=== PATIENT | female | born 1960 | race Caucasian/White ===

== ENCOUNTER 2019-03-09 12:42 | Inpatient (IN) ==
[2019-03-09] MEDS ORDERED: SOLU-MEDROL IV ONE (13:28)
[2019-03-09] MEDS ORDERED: DUONEB (A & A) INH ONE (13:28)
[2019-03-09 13:55] LABS: BASO# 0.02 X1000 (0.0-0.2); BASO% 0.4 % (0.0-0.8); EOS# 0.07 X1000 (0.0-0.7); EOS% 1.5 % (0.0-10.0); HEMATOCRIT 39.5 % (37.0-47.0); HEMOGLOBIN 13.6 g/dL (12.0-16.0); LYMPH% 21.5 % (20.5-51.1); MCH 30.5 PG (27-31); MCHC 34.4 g/dL (33-37); MCV 88.6 FL (81-99); MONO# 0.46 X1000 (0.11-0.59); MONO% 9.9 % (1.7-9.3); MPV 9.2 FL (7.4-10.4); NEUT% 66.7 % (42.2-75.2); PLT 274 X1000 (130-400); RBC 4.46 XMIL (4.2-5.4); RDW 14.4 % (11.5-14.5); WBC 4.65 X1000 (4.8-10.8)
[2019-03-09 14:41] LABS: AGAP 11; ALB/GLOB RATIO 1.5; ALBUMIN 3.8 g/dL (3.5-5.0); ALKALINE PHOSPHATASE 137 U/L (32-104); BUN 9 mg/dL (8-22); CALCIUM 8.8 mg/dL (8.8-10.2); CHLORIDE 92 mmol/L (98-107); COSMO 256; CREATININE 0.6 mg/dL (0.5-0.9); ESTIMATED GFR > 60; GLUCOSE 104 mg/dL (70-104); GOT 15 U/L (10-30); GPT 11 U/L (10-36); POTASSIUM 4.1 mmol/L (3.5-5.1); SODIUM 128 mmol/L (136-145); TCO2 25 mmol/L (25-35); TOTAL BILIRUBIN 0.27 mg/dL (0.20-1.00); TOTAL PROTEIN 6.3 g/dL (6.3-8.3)
--- NOTE | 2019-03-09 14:43 | Diag Imaging Result Doc PS360 ---
EXAM: CHEST-2 VIEWS INDICATION: cough, SOB TECHNIQUE: 2 views COMPARISON: 02/21/2019 FINDINGS: Inspiration is suboptimal. There is mild subsegmental atelectasis at the right lung base. The lungs are grossly clear, otherwise. There is no discrete pleural fluid collection or pneumothorax. The cardiomediastinal silhouette and central vasculature are grossly unremarkable. There is osteopenia and stable multilevel compression deformities involving the thoracic spine. IMPRESSION: Right basilar atelectasis. No definite acute pathology, otherwise. Electronically signed by Salvador Coronado 03/09/2019 2:41 PM
[2019-03-09] MEDS ORDERED: ROCEPHIN 1 GM in NS 50 ML IV ONE (15:49)
[2019-03-09 16:33] LABS: BLOOD TYPE ARTERIAL; SAMPLE BLOOD
[2019-03-09 16:34] LABS: BE 0.4 mmoll (-3.0-3.0); O2(CT) 16.9 mL/dL (15.0-23.0); PCO2(98.6) 31 mmHg (35-45); PO2(98.6) 64 mmHg (60-100); SAO2 95.4 % (95.0-100.0); THB 13.4 g/dL (11.5-17.4); pH(98.6) 7.48 (7.35-7.45)
[2019-03-09 16:37] LABS: ALLEN TEST YES; MODALITY ROOM AIR; O2HB 89.9 % (95.0-99.0)
[2019-03-09 17:14] LABS: URINE SOURCE CLEAN CATCH
[2019-03-09 17:32] LABS: BILIRUBIN URINE NEGATIVE (NEGATIVE); BLOOD URINE TRACE (NEGATIVE); COLOR YELLOW; GLUCOSE URINE NEGATIVE (NEGATIVE); KETONE URINE NEGATIVE (NEGATIVE); LEUKOCYTES URINE NEGATIVE (NEGATIVE); NITRITE URINE NEGATIVE (NEGATIVE); PH URINE 7.5; PROTEIN URINE NEGATIVE (NEGATIVE); SP GRAVITY URINE 1.009; TURBIDITY URINE CLEAR (CLEAR); UROBILINOGEN URINE NORMAL (NORMAL)
[2019-03-09 17:33] LABS: UR EPITHELIAL CELLS <10 /HPF (<10); URINE BACTERIA NEGATIVE /HPF; URINE RBC <10 /HPF (<10); URINE WBC <10 /HPF (<10)
[2019-03-09] MEDS ORDERED: ZOFRAN IV PRN (18:19)
[2019-03-09] MEDS ORDERED: DUONEB (A & A) INH PRN (18:23)
--- NOTE | 2019-03-09 18:24 | PROVIDER DOCUMENTATION ---
This chart was entered by Omaira Cruz Scribe, acting as scribe for Binh Fowler CRNP. HPI-Respiratory General - General Chief Complaint: Cough Stated Complaint: SOB,COUGHING,HAD PNEUMONIA Time Seen by Provider: 03/09/19 12:57 Source: patient, family (Sister) Allergies/Adverse Reactions: Patient Allergies Allergy/AdvReac Type Severity Reaction Status Date / Time No Known Allergies Allergy Verified 09/06/18 12:36 Home Medications: Home Medication List Medication Instructions Recorded Confirmed Last Taken Type Biotin [Nail-Ex] 5,000 mcg PO DAILY 10/06/13 04/26/17 04/26/17 05:00 History Calcium Carbonate/Vitamin D3 1 each PO DAILY 10/06/13 04/26/17 04/26/17 05:00 History [Calcium + Vitamin D Tablet] Docusate Sodium [Stool Softener] 300 mg PO HS 10/06/13 04/26/17 04/25/17 History ENALApril [Vasotec] 5 mg PO DAILY 10/06/13 04/26/17 04/26/17 05:00 History Furosemide [Lasix] 40 mg PO BID 10/06/13 04/26/17 04/26/17 05:00 History Gabapentin [Neurontin] 800 mg PO TID 10/06/13 04/26/17 04/26/17 05:00 History Metformin [Glucophage] 500 mg PO DAILY 10/06/13 04/26/17 04/26/17 05:00 History Omeprazole [Prilosec] 20 mg PO DAILY 10/06/13 04/26/17 04/26/17 05:00 History Simvastatin 20 mg PO DAILY 10/06/13 04/26/17 04/26/17 00:50 History Tizanidine [Zanaflex] 4 mg PO BID 10/06/13 04/26/17 04/26/17 00:50 History Venlafaxine E.r. [Effexor Xr] 300 mg PO DAILY 10/06/13 04/26/17 04/26/17 05:00 History Oxcarbazepine [Trileptal] 300 mg PO BID 05/09/14 04/26/17 04/26/17 05:00 History Hydrocodone/APAP 7.5 mg/325 mg 1 each PO BID #14 tablet 04/26/17 Unknown Rx [[place]-7.5] Oxycodone HCl/Acetaminophen 1 ea PO Q4-6H PRN PRN #20 tab 11/16/17 Unknown Rx [Percocet 7.5-325 mg Tablet] Hydrocodone/APAP 5 mg/325 mg 1 ea PO Q6H PRN PRN #10 tab 07/23/18 Unknown Rx [[place]-5] Hydrocodone/APAP 7.5 mg/325 mg 1 ea PO Q6H PRN PRN #15 tab 09/06/18 Unknown Rx [[place]-7.5] CefDINIR [Omnicef] 300 mg PO BID #14 cap 02/21/19 Unknown Rx - History of Present Illness-Resp Nature of Presenting Problem: Patient is a 58 y/o female presents to the ED with complaint of SOB, productive cough with clear sputum, generalized chest and back pain worsening with cough, and worsening edema which has been going on for several weeks and worsening last night. She also states she has been sleeping in a recliner due to worsening of SOB when lying flat. The patient states she was seen here a few weeks ago and given antibiotic treatment for diagnosis of bronchitis. She then saw her PCP, Dr. Camp, and received Levaquin which she finished and told to have pneumonia. She denies fever, n/v/d, or any other symptoms and is non-toxic in appearance. Quality of Pain: reports: tightness Onset/Duration: reports: other (cseveral weeks worsening last night) Timing: reports: getting worse Exposure: reports: unknown cause Cough Quality/Degree: reports: productive cough Current Respiratory Medication Therapy: Initiated see nurses note Modifying Factors: worse with: coughing, lying down Associated Symptoms: reports: cough, short of breath Similar Symptoms Previously?: Yes Recently seen or treated by another doctor?: Yes Review of Systems - Adult - REVIEW OF SYSTEMS - ADULT Constitutional: reports: no symptoms reported Eyes: reports: no symptoms reported Ears, Nose, Mouth & Throat: reports: no symptoms reported Cardiovascular: reports: chest pain, edema (worsening), orthopnea Respiratory: reports: cough, shortness of breath. denies: hemoptysis Gastrointestinal: denies: abdominal pain, diarrhea, nausea, vomiting Genitourinary: reports: no symptoms reported Musculoskeletal: reports: no symptoms reported Integumentary: reports: no symptoms reported Neurological: reports: no symptoms reported Psychiatric: reports: no symptoms reported Endocrine: reports: no symptoms reported Hematologic/Lymphatic: reports: no symptoms reported Allergic/Immunologic: reports: no symptoms reported All Other Systems: Reviewed and Negative Past History - Adult - PAST MEDICAL HISTORY-ADULT Review of Records: reports: Old Records Reviewed, Nursing Assessment Review, Medications Reviewed Major Childhood Illnesses: reports: denies history Cardiovascular: reports: HTN, hyperlipidemia Respiratory: reports: COPD, sleep apnea Gastrointestinal: reports: GERD Obstetrical/Gynecological: reports: denies history Genitourinary: reports: denies history Musculoskeletal: reports: chronic pain, neck/back injury Neurological: Psychiatric: reports: bipolar, depression Endocrine/Immune: reports: Diabetes Other Conditions: reports: other cancer - PRIOR SURGERIES/PROCEDURES Surgical/Procedure History: reports: appendectomy, cholecystectomy, orthopedic (extremity) (bilateral arms), back/neck, gastric bypass - IMMUNIZATION STATUS Childhood Immunizations: See Nurse Assessment Flu Vaccine: See Nurse Assessment - FAMILY HISTORY Family History: reviewed, not pertinent - SOCIAL HISTORY Smoking: denies Substance Use: none/never Physical Exam-General - PHYSICAL EXAM-ADULT Initial Vital Signs Reviewed: Yes - CONSTITUTIONAL General Appearance: alert, mild distress, obese. negative: appears well, lethargic, slow to respond - EYES Eyes: PERRL/EOMI - HEAD, EARS, NOSE, MOUTH & THROAT HENMT: normocephalic/atraumatic, moist mucous membranes - NECK Neck: full range of motion, supple, normal inspection - RESPIRATORY Respiratory: chest non-tender, no accessory muscle use, respiratory distress (Mild), rhonchi (diffuse expiratory), wheezing (diffuse inspiratory), pain on inspiration (Pt reports chest/rib/back pain with inspiration.). negative: decreased breath sounds - CARDIOVASCULAR Cardiovascular: normal peripheral pulses, regular rate, rhythm, no gallop, no JVD, no murmur, other (2+ pitting edema bilateral lower extremities) - GASTROINTESTINAL (ABDOMEN) Abdominal Exam: non tender, soft, no organomegaly, no pulsatile mass. negative: distended, guarding, rigid, rebound, tenderness, hernia, mass - MUSCULOSKELETAL Back Exam: normal inspection Extremity: normal range of motion, non-tender, normal capillary refill, pedal edema (2+ pitting bilateral lower extremities). negative: slow capillary refill - SKIN Integumentary: normal color, warm/dry. negative: cyanosis, diaphoresis, jaundice, mottled, pallor - NEUROLOGIC Neurologic: grossly normal, no motor/sensory deficits - PSYCHIATRIC Psych/Mental Status: normal mood/affect, normal thought content, normal thought process, oriented x 3 - HEART Score HEART Score: History: Slightly Suspicious HEART Score: ECG: Normal HEART Score: Age: 45-65 Years HEART Score: Risk Factors for Atherosclerotic Disease: > or = 3 Risk Factors or History of Atherosclerotic Disease HEART Score: Troponin: < or = Normal Limit Total HEART Score:: 3 Progress - PLAN OF CARE/RESULTS Progress/Plan/Lab Results: Vital Signs - 8 hr 03/09/19 12:46 03/09/19 13:27 03/09/19 13:30 Temperature 97.9 F Pulse Rate 85 75 77 Respiratory Rate 18 14 17 Blood Pressure 121/76 O2 Sat by Pulse Oximetry 99 99 100 03/09/19 13:47 03/09/19 14:09 03/09/19 14:30 Temperature Pulse Rate 74 73 75 Respiratory Rate 17 16 16 Blood Pressure 129/84 O2 Sat by Pulse Oximetry 97 97 03/09/19 15:00 03/09/19 15:23 03/09/19 15:24 Temperature Pulse Rate 72 77 78 Respiratory Rate 13 23 22 Blood Pressure 138/83 O2 Sat by Pulse Oximetry 97 99 03/09/19 15:30 03/09/19 15:31 03/09/19 16:00 Temperature Pulse Rate 75 72 81 Respiratory Rate 20 20 20 Blood Pressure 119/75 O2 Sat by Pulse Oximetry 100 100 92 L 03/09/19 16:01 03/09/19 16:30 03/09/19 16:31 Temperature Pulse Rate 79 80 78 Respiratory Rate 19 21 16 Blood Pressure 118/82 140/99 O2 Sat by Pulse Oximetry 95 92 L 94 L Laboratory Results - last 24 hr 03/09/19 03/09/19 03/09/19 13:40 13:40 13:40 WBC 4.65 L RBC 4.46 Hgb 13.6 Hct 39.5 MCV 88.6 MCH 30.5 MCHC 34.4 RDW Std Deviation 14.4 Plt Count 274 MPV 9.2 Neut % (Auto) 66.7 Lymph % (Auto) 21.5 [place] % (Auto) 9.9 H Eos % (Auto) 1.5 Baso % (Auto) 0.4 Neut # (Auto) 3.10 Lymph # (Auto) 1.00 L [place] # (Auto) 0.46 Eos # (Auto) 0.07 Baso # (Auto) 0.02 Specimen Type Sample Site pH pCO2 pO2 HCO3 Base Excess Oxyhemoglobin ABG O2 Sat (Calculated) ABG O2 Saturation ABG Carboxyhemoglobin ABG Methemoglobin Cash Test A-a O2 Difference Total Hemoglobin Lactate Blood Gas Modality FiO2 % Sodium 128 L Potassium 4.1 Chloride 92 L Carbon Dioxide 25 Anion Gap 11 BUN 9 Creatinine 0.6 Estimated GFR/1.73 m2 > 60 BUN/Creatinine Ratio 15 Glucose 104 Calculated Osmolality 256 Calcium 8.8 Total Bilirubin 0.27 AST 15 ALT 11 Alkaline Phosphatase 137 H Troponin T < 0.010 Efu-A-Sepbpluosqc Pept Total Protein 6.3 Albumin 3.8 Globulin 2.5 Albumin/Globulin Ratio 1.5 Urine Source Urine Color Urine Turbidity Urine pH Ur Specific [place] Urine Protein Ur Glucose (Stick) Ur Ketones (Stick) Urine Blood Urine Nitrite Urine Bilirubin Urobilinogen Dipstick Urine Leukocytes Urine WBC (Auto) Urine RBC (Auto) U Epithel Cells (Auto) Urine Bacteria (Auto) 03/09/19 03/09/19 03/09/19 13:40 16:30 17:06 WBC RBC Hgb Hct MCV MCH MCHC RDW Std Deviation Plt Count MPV Neut % (Auto) Lymph % (Auto) [place] % (Auto) Eos % (Auto) Baso % (Auto) Neut # (Auto) Lymph # (Auto) [place] # (Auto) Eos # (Auto) Baso # (Auto) Specimen Type ARTERIAL Sample Site R RADIAL pH 7.48 H pCO2 31 L pO2 64 HCO3 25.0 Base Excess 0.4 Oxyhemoglobin 89.9 L* ABG O2 Sat (Calculated) 16.9 ABG O2 Saturation 95.4 ABG Carboxyhemoglobin 4.70 H ABG Methemoglobin 1.0 Cash Test YES A-a O2 Difference 47.0 Total Hemoglobin 13.4 Lactate 0.60 Blood Gas Modality ROOM AIR FiO2 % 21.0 Sodium Potassium Chloride Carbon Dioxide Anion Gap BUN Creatinine Estimated GFR/1.73 m2 BUN/Creatinine Ratio Glucose Calculated Osmolality Calcium Total Bilirubin AST ALT Alkaline Phosphatase Troponin T Leb-N-Yihwvprxslh Pept 14 Total Protein Albumin Globulin Albumin/Globulin Ratio Urine Source CLEAN CATCH Urine Color YELLOW Urine Turbidity CLEAR Urine pH 7.5 Ur Specific [place] 1.009 Urine Protein NEGATIVE Ur Glucose (Stick) NEGATIVE Ur Ketones (Stick) NEGATIVE Urine Blood TRACE A Urine Nitrite NEGATIVE Urine Bilirubin NEGATIVE Urobilinogen Dipstick NORMAL Urine Leukocytes NEGATIVE Urine WBC (Auto) <10 Urine RBC (Auto) <10 U Epithel Cells (Auto) <10 Urine Bacteria (Auto) NEGATIVE Orders Category Date Time Status Cardiac Monitoring DIRECTED Care 03/09/19 13:28 Active Saline Loc NOW Care 03/09/19 13:28 Active CHEST-2 VIEWS [RAD] Stat Exams 03/09/19 13:28 Completed ABG [RESP] Routine Lab 03/09/19 16:30 Completed CBC WITH DIFF [HEME] Stat Lab 03/09/19 13:40 Completed COMPREHENSIVE METABOLIC PANEL [CHEM] Stat Lab 03/09/19 13:40 Completed PRO B-NATRIURETIC PEPTIDE Stat Lab 03/09/19 13:40 Completed TROPONIN T Stat Lab 03/09/19 13:40 Completed URINALYSIS W/POSS RFLX CULT [URINALYSIS] Stat Lab 03/09/19 17:06 Completed Albuterol 2.5MG/Ipratrop 0.5MG [Duoneb (A & A)] Med 03/09/19 13:28 Discontinued 3 ml INH NOW ONE CefTRIAXONE [Rocephin] 1 gm Med 03/09/19 15:49 Discontinued 0.9% Sodium Chloride Inj [Ns] 50 ml IV NOW Methylprednisolone Sod Succ [Solu-Medrol] Med 03/09/19 13:28 Discontinued 125 mg IV NOW ONE Aerosol Treatments Routine Oth 03/09/19 13:28 Completed Aerosol Treatments Stat Oth 03/09/19 13:28 Completed EKG [EKG] Stat Ther 03/09/19 13:28 Ordered 1604- Spoke with [facility] FINANCIAL SPECIALIST Summer regarding admission, FINANCIAL SPECIALIST requests ABGs prior to disposition decision. Pt is in agreement with admission plan. Reports moderate improvement in SOB with breathing tx. O2 sat drops to 88-90% when pt sits up in bed. Rhonchi and wheezing improved as compared to prior exam. 1657- The patient is attempting to remove IV herself and wishes to sign out AMA. Pt is a&ox4 at this time. Sister is in the room and states pt is neurologically intact and not altered. Pt states, "I just don't like staying in the hospital." Explained that risks of leaving include worsening hypoxia and . Also explained that pt has become hypoxic with minimal activity in the ED. She verbalized understanding of risks and still refuses admission. Instructed to return if needed and to follow up with her pcp tomorrow at the very least. Summ er, FINANCIAL SPECIALIST aware that pt is signing out AMA. Result Diagrams: 03/09/19 13:40 03/09/19 13:40 - EKG 1 Time of EKG reading by physician:: 13:44 EKG Read and Signed by:: Stan Wren EKG Interpretation (*Must complete 3 of following elements*): Normal Rate: 77 Rhythm: NSR IA Interval: normal ST Wave: normal - XRAY 1 XRAY Study: Chest (EXAM: CHEST-2 VIEWS INDICATION: cough, SOB TECHNIQUE: 2 views COMPARISON: 02/21/2019 FINDINGS: Inspiration is suboptimal. There is mild subsegmental atelectasis at the right lung base. The lungs are grossly clear, otherwise. There is no discrete pleural fluid collection or pneumothorax. The cardiomediastinal silhouette and central vasculature are grossly unremar kable. There is osteopenia and stable multilevel compression deformities involving the thoracic spine. IMPRESSION: Right basilar atelectasis. No definite acute pathology, otherwise. Electronically signed by Salvador Coronado 03/09/2019 2:41 PM) - CONSULTS/PCP/HOSPITALIST Notification #1 *Consult/PCP/Hospitalist*: Summer, Hospitalist Time Discussed: 16:52 Reason/Comments: Oxy hemoglobin 89 Consult Disposition: Will see in ED Departure - Departure Date of Disposition Decision: 03/09/19 Time of Disposition Decision: 16:52 DIAGNOSIS: Shortness of breath, Cough Chest pain Qualifiers: Chest pain type: unspecified Qualified Code(s): R07.9 - Chest pain, unspecified Disposition: AGAINST MEDICAL ADVICE 07 Certified Medical Emergency: Emergent Condition: Stable Referrals and Follow-Ups: Nicola Smyth MD [Primary Care Provider] - - Critical Care Note This patient required my direct & personal management of CC.: No Attestation - Physician/ GINI Attestation Patient care was provided by Advanced Practice Provider:: Yes Advanced Practice Provider:: Binh Fowler Advanced Practice Provider documentation review:: The Mid-level provider documentation, treatment plan and medical decision making was reviewed by the physician who agrees with all treatment and medical decision making by the MLP. The physician spent face to face time with patient:: No Advanced Practice Provider documentation review:: Supervising physician onsite and consulted in the evaluation and care of this patient. The physician did not have a face to face encounter with the patient. This chart was documented by the indicated scribe, (Omaira Cruz, Gabriel) and accurately reflects the services I performed and decisions made by Janeth allison DeLana C., CRNP, as attested by the provider's signature.
[2019-03-09] MEDS ORDERED: LOVENOX SUBQ SCH (18:30)
[2019-03-09] MEDS ORDERED: DOXYCYCLINE 100 MG in NS 250 ML IV ONE (19:00)
--- NOTE | 2019-03-09 19:25 | HISTORY AND PHYSICAL ---
PRIMARY CARE PHYSICIAN: Nicola Smyth MD. PRESENTING COMPLAINT: Short of breath, cough. HISTORY OF PRESENTING COMPLAINT: Ms. Leo is a 58-year-old, female with a history of diabetes, hypertension, chronic tobacco abuse. The patient refers to have come to the emergency department on 02/21/2019 because of shortness of breath and cough, was treated for bronchitis, sent home on steroids and cefdinir, completed treatment for 7 days. However, she continues to feel worse, so she called to her primary care doctor, Dr. Smyth, who also gave her a prescription for antibiotics and another course of steroids and she did that for another 7 days. At the end of therapy, she did not feel any better. She continues to be extremely short of breath and cough with yellow expectoration, so she decided to come to the emergency department today where she has been evaluated and we have been consulted for admission because of failed outpatient therapy. PAST MEDICAL HISTORY: 1. Diabetes mellitus. 2. Hypertension. 3. Chronic pain syndrome. PAST SURGICAL HISTORY: 1. Left shoulder surgery. 2. Cervical spine surgery. 3. Cholecystectomy. 4. Colonoscopy done in 2015. FAMILY HISTORY: Positive for diabetes. SOCIAL HISTORY: Patient lives together with the sister. Smokes about 30 pack year history. Denies alcohol use and no recreational drug use. ALLERGIES: None known. REVIEW OF SYSTEMS: Fourteen-point review of systems conducted with Ms. Leo, unremarkable except what we have in the HPI. Specifically, she denies any chest pain, any syncopal episode. No fever, no chills. No weight loss. No abdominal pain and no headaches. PHYSICAL EXAMINATION: VITAL SIGNS: Blood pressure is currently 140/99, pulse of 78, respiration is 16, temperature is 97.6. GENERAL EXAM: Ms. Leo is a 58-year-old, female. She is in bed. She is not in any cardiopulmonary distress. HEENT: Mucosa is slightly dry, but pink. Anicteric, acyanotic. NECK: Supple. CHEST: Air entry is bilaterally reduced. There is diffuse end-expiratory wheezing in both lung gonzales. There is also prolonged expiratory phase of respiration. CARDIOVASCULAR: Regular rate and rhythm. No murmurs, no rubs, no gallops. [place] beat is at the 5th intercostal space, midclavicular line. ABDOMEN: Soft, nontender. There is some old laparoscopic scars on the anterior abdominal wall. EXTREMITIES: Chronic erythematous changes on the lower extremity on both, more on the right than the left due to chronic stasis dermatitis. PATIENT SERVICES COORDINATOR: Patient is awake, alert, oriented x4. Executive function seems to be intact. Motor is 5/5 in all extremities. Sensation is intact. Reflexes are normal in all joints. Cranial nerves 2-12 have been grossly examined and they are unremarkable. PSYCH: The patient is very cooperative to physical exams and interrogations. She has very good understanding and insight. The the sister was also at the bedside at the time of the encounter. IMAGING STUDIES: A chest x-ray shows a right basilar atelectasis. No definite acute pathology. LABORATORY DATA: WBC is 4.65, hemoglobin is 13.6, platelet count of 274. CBC is also seen. PH is 7.48, pCO2 is 21. Mild oxyhemoglobin of 89.9, carboxyhemoglobin was 4.7. Sodium is 138, potassium 4.1, chloride 92, rest of chemistry is unremarkable. Urinalysis is normal. ASSESSMENT AND PLAN: Ms. Leo is 58 years old, chronic tobacco abuse, who has been treated on 2 different occasions for lower respiratory tract related symptoms and the patient has not improved. She has been admitted for failed outpatient management. 1. Acute bronchospasm in a patient with history of more than 30 pack year history. Chest x-ray is unremarkable. I suspect Ms. Leo has chronic obstructive pulmonary disease exacerbation. We are going to start her on IV antibiotics, steroids, and bronchodilation therapy. We will also do a CTA of the lungs to rule out any possible PE. 2. Tobacco abuse. Cessation has been addressed. 3. Mild clinical volume depletion with hyponatremia. We will gently hydrate the patient and re- evaluate her hydration status in the morning and repeat also chemistry. 4. Morbid obesity with BMI of 34.9. Weight loss is advised. 5. Hypertension, controlled. 6. Diabetes mellitus. We will use insulin regimen at this point. The patient normally uses oral hypoglycemic agents which we will withhold for now. 7. Chronic pain syndrome. We will continue to address her pain needs. So today, we are going to admit Ms. Leo to the medical floor. We will gently hydrate her. Continue with the standard care for COPD exacerbation. Hopefully, she improves. If not we will consult Pulmonary Medicine. I have explained my plan to Ms. Leo and her sister who was also at the bedside at the time of the encounter and they both voiced understanding and agreement. cc: Gilmer Perla MD
[2019-03-09] MEDS: SOLU-MEDROL IV SCH (19:42)
[2019-03-09] MEDS: MAXIPIME 1 GM in NS 50 ML IV SCH (19:42)
[2019-03-09] MEDS ORDERED: NORCO-5 PO ONE (19:50)
[2019-03-09] MEDS: DUONEB (A & A) INH SCH ×2 (20:07→23:09)
--- NOTE | 2019-03-09 20:11 | Diag Imaging Result Doc PS360 ---
EXAM: CT ANGIOGRM PULMONARY ARTERIES INDICATION: SOB TECHNIQUE: This exam was performed using automated exposure control, adjustment of mA or kV according to patient size, and/or use of iterative reconstruction technique. Thin section axial images and 3-D MIPS were obtained. COMPARISON: None. FINDINGS: There is no evidence of pulmonary embolism. There is no evidence of aortic dissection or aneurysm. There is no cardiomegaly. There are coronary artery atherosclerotic calcifications. There is no significant mediastinal or hilar lymphadenopathy. There is mild subsegmental atelectasis at the lung bases. The lungs are essentially clear, otherwise. There is no pleural fluid collection and no pneumothorax. There are surgical edis associated with the stomach. Limited views of the upper abdomen are essentially unremarkable, otherwise. IMPRESSION: Mild subsegmental atelectasis at the lung bases. No evidence of pulmonary embolism or acute pathology, otherwise. Electronically signed by Salvador Coronado 03/09/2019 8:09 PM
[2019-03-09] MEDS ORDERED: NORCO-7.5 PO SCH (21:00)
[2019-03-09] MEDS ORDERED: COLACE PO SCH (21:00)
[2019-03-10] MEDS: NS 1,000 ML IV SCH ×2 (01:27→03:21)
[2019-03-10] MEDS: TRILEPTAL PO SCH ×3 (01:27→10:23)
[2019-03-10] MEDS: ZANAFLEX PO SCH ×3 (01:28→10:23)
[2019-03-10] MEDS: SOLU-MEDROL IV SCH ×2 (03:07→12:01)
[2019-03-10] MEDS: NORCO-7.5 PO PRN ×2 (03:21→10:21)
[2019-03-10] MEDS: ZOCOR PO SCH ×2 (07:41→10:23)
[2019-03-10] MEDS: NEURONTIN PO SCH ×2 (07:41→10:24)
[2019-03-10] MEDS: MAXIPIME 1 GM in NS 50 ML IV SCH (07:41)
[2019-03-10] MEDS: EFFEXOR XR PO SCH ×2 (07:41→10:23)
[2019-03-10] MEDS: PRILOSEC PO SCH ×2 (07:42→10:24)
[2019-03-10 07:52] LABS: HEMATOCRIT 40.3 % (37.0-47.0); LYMPH# 0.38 X1000 (1.2-3.4); LYMPH% 7.6 % (20.5-51.1); MCH 30.3 PG (27-31); MCHC 34.7 g/dL (33-37); MCV 87.2 FL (81-99); MONO# 0.27 X1000 (0.11-0.59); MONO% 5.4 % (1.7-9.3); MPV 9.6 FL (7.4-10.4); NEUT# 4.37 X1000 (1.4-6.5); PLT 280 X1000 (130-400); RBC 4.62 XMIL (4.2-5.4); RDW 14.2 % (11.5-14.5); WBC 5.02 X1000 (4.8-10.8)
[2019-03-10 08:00] LABS: AGAP 11; ALB/GLOB RATIO 1.3; ALBUMIN 3.6 g/dL (3.5-5.0); ALKALINE PHOSPHATASE 122 U/L (32-104); BUN 6 mg/dL (8-22); CALCIUM 8.9 mg/dL (8.8-10.2); CHLORIDE 102 mmol/L (98-107); COSMO 270; CREATININE 0.5 mg/dL (0.5-0.9); ESTIMATED GFR > 60; GLUCOSE 133 mg/dL (70-104); GOT 13 U/L (10-30); GPT 11 U/L (10-36); SODIUM 135 mmol/L (136-145); TCO2 22 mmol/L (25-35); TOTAL BILIRUBIN 0.25 mg/dL (0.20-1.00); TOTAL PROTEIN 6.3 g/dL (6.3-8.3)
[2019-03-10 08:07] LABS: BANDS 2 % (0-1); LYMPHS 6 % (21-51); MONO 4 % (1-9); SEGS 88 % (42-75)
[2019-03-10] MEDS: DUONEB (A & A) INH SCH ×2 (08:07→10:53)
[2019-03-10] MEDS ORDERED: NORCO-7.5 PO SCH (09:00)
[2019-03-10] MEDS ORDERED: DOXYCYCLINE 100 MG in NS 250 ML IV SCH (09:00)
[2019-03-10 13:29] VITALS: BP 134/68
--- NOTE | 2019-03-11 08:35 | EKG Report ---
Test Performed on : 03/09/2019 1:44:41 PM Test Reason : PNA Blood Pressure : / mmHG Vent. Rate : 077 BPM Atrial Rate : 077 BPM P-R Int : 156 ms QRS Dur : 104 ms QT Int : 416 ms P-R-T Axes : 052 037 055 degrees QTc Int : 470 ms Normal sinus rhythm. Normal ECG When compared with ECG of 20-FEB-2019 23:56, (Unconfirmed) No significant change was found Unconfirmed Result
== END 2019-03-10 13:45 | disposition left against medical advice (07) | DRG 191 ==
LOC: ED 12:42 → SUATTDRO 03-10 00:23 → 3N 03-10 00:23
PROVIDERS: ATTEND Internal Medicine
CPT/HCPCS: 71020; 71046; 71275; 80053; 81001; 82805; 83880; 84443; 84484; 85025; 93005; 94640; 94761; A9270; J0692; J0696; J1650; J2920; J2930; J7030; J7050; Q9967

== ENCOUNTER 2019-03-26 20:07 | Inpatient (IN) ==
[2019-03-26 22:43] LABS: BASO# 0.01 X1000 (0.0-0.2); BASO% 0.2 % (0.0-0.8); EOS# 0.09 X1000 (0.0-0.7); EOS% 1.5 % (0.0-10.0); HEMATOCRIT 36.4 % (37.0-47.0); HEMOGLOBIN 12.5 g/dL (12.0-16.0); IMM GRAN# 0.02 X1000 (0.0-0.04); IMM GRAN% 0.3 % (0.0-0.5); LYMPH# 1.09 X1000 (1.2-3.4); LYMPH% 17.9 % (20.5-51.1); MCH 30.8 PG (27-31); MCHC 34.3 g/dL (33-37); MCV 89.7 FL (81-99); MONO# 0.59 X1000 (0.11-0.59); MONO% 9.7 % (1.7-9.3); MPV 9.7 FL (7.4-10.4); NEUT# 4.29 X1000 (1.4-6.5); NEUT% 70.4 % (42.2-75.2); PLT 249 X1000 (130-400); RBC 4.06 XMIL (4.2-5.4); WBC 6.09 X1000 (4.8-10.8)
[2019-03-26 23:02] LABS: AGAP 9; ALBUMIN 3.6 g/dL (3.5-5.0); BUN 9 mg/dL (8-22); CALCIUM 8.6 mg/dL (8.8-10.2); CHLORIDE 95 mmol/L (98-107); COSMO 260; CREATININE 0.5 mg/dL (0.5-0.9); ESTIMATED GFR > 60; GLUCOSE 102 mg/dL (70-104); POTASSIUM 3.9 mmol/L (3.5-5.1); SODIUM 130 mmol/L (136-145); TCO2 26 mmol/L (25-35); TOTAL PROTEIN 6.4 g/dL (6.3-8.3)
[2019-03-26 23:03] LABS: ALKALINE PHOSPHATASE 116 U/L (32-104); GOT 14 U/L (10-30); GPT 12 U/L (10-36)
--- NOTE | 2019-03-26 23:47 | PROVIDER DOCUMENTATION ---
This chart was entered by Kim Rodriguez Scribe, acting as scribe for Donnie Sorenson MD. HPI-General Adult - General Chief Complaint: Generalized Pain Stated Complaint: BACK/ABD PAIN Time Seen by Provider: 03/26/19 21:37 Source: patient Allergies/Adverse Reactions: Patient Allergies Allergy/AdvReac Type Severity Reaction Status Date / Time No Known Allergies Allergy Verified 09/06/18 12:36 Home Medications: Home Medication List Medication Instructions Recorded Confirmed Last Taken Type Docusate Sodium [Stool Softener] 300 mg PO HS 10/06/13 03/26/19 04/25/17 History ENALApril [Vasotec] 5 mg PO DAILY 10/06/13 03/26/19 04/26/17 05:00 History Furosemide [Lasix] 40 mg PO BID 10/06/13 03/26/19 04/26/17 05:00 History Gabapentin [Neurontin] 800 mg PO TID 10/06/13 03/26/19 04/26/17 05:00 History Metformin [Glucophage] 500 mg PO DAILY 10/06/13 03/26/19 04/26/17 05:00 History Simvastatin 20 mg PO DAILY 10/06/13 03/26/19 04/26/17 00:50 History Tizanidine [Zanaflex] 4 mg PO BID 10/06/13 03/26/19 04/26/17 00:50 History Venlafaxine E.r. [Effexor Xr] 300 mg PO DAILY 10/06/13 03/26/19 04/26/17 05:00 History Oxcarbazepine [Trileptal] 300 mg PO BID 05/09/14 03/26/19 04/26/17 05:00 History Aspirin [Luis A Chewable Aspirin] 1 tab PO DAILY 03/09/19 03/26/19 Unknown History Calcium Carbonate [Calcium] 600 mg PO DAILY 03/09/19 03/26/19 Unknown History Omeprazole 40 mg PO DAILY 03/09/19 03/26/19 Unknown History Oxybutynin Chloride [Oxybutynin 15 mg PO DAILY 03/09/19 03/26/19 Unknown History Chloride ER] Sertraline HCl [Zoloft] 200 mg PO DAILY 03/09/19 03/26/19 Unknown History Trazodone [Desyrel] 100 mg PO HS 03/09/19 03/26/19 Unknown History Acetaminophen [Tylenol] 1 gm PO Q4-6H PRN PRN 03/26/19 03/26/19 Unknown History Hydrocodone/APAP 5 mg/325 mg 1 tab PO Q6H PRN PRN #12 tab 03/27/19 Unknown Rx [Bronx-5] - History of Present Illness -Gen Adult Nature of Presenting Problems: pt is a 58 yr old female presenting with 3 week hx of increasing back pain, abdominal pain, pt treated for pneumonia 03/09/19. denies chest pain or shortness of breath, admits hx of osteoarthritis, no relief with neurotin Location of Pain/Injury: reports: back Pain Radiation: reports: epigastric, RUQ Quality of Pain: reports: aching Severity: reports: severe Onset/Duration: reports: other (3weeks) Timing: reports: still present, getting worse Context/Activities at Onset: reports: light activity Modifying Factors: improves with: other medication (neurotin-no relief) Associated Symptoms: reports: back/neck pain. denies: chest pain, cough, fever/chills, genitourinary problems, sinus congestion/drainage, shortness of breath Similar Symptoms Previously?: Yes Recently seen or treated by another doctor?: Yes Review of Systems - Adult - REVIEW OF SYSTEMS - ADULT Constitutional: denies: chills, fever Eyes: reports: no symptoms reported Ears, Nose, Mouth & Throat: reports: no symptoms reported Cardiovascular: reports: edema (bilateral lower leg edema-chronic). denies: chest pain, palpitations, syncope Respiratory: denies: cough, shortness of breath, wheezing Gastrointestinal: reports: abdominal pain. denies: diarrhea, nausea, vomiting Genitourinary: denies: dysuria, frequency, flank pain Musculoskeletal: reports: back pain. denies: joint pain, neck pain Integumentary: reports: other (erythema distal bilateral lower legs-chronic) Neurological: denies: dizziness/vertigo, headache/migraines Psychiatric: reports: no symptoms reported Endocrine: reports: no symptoms reported Hematologic/Lymphatic: reports: no symptoms reported Allergic/Immunologic: reports: no symptoms reported All Other Systems: Reviewed and Negative Past History - Adult - PAST MEDICAL HISTORY-ADULT Review of Records: reports: Old Records Reviewed, Nursing Assessment Review, Medications Reviewed, Social history reviewed & non-contributory. Major Childhood Illnesses: reports: denies history Cardiovascular: reports: HTN, hyperlipidemia Respiratory: reports: COPD, sleep apnea Gastrointestinal: reports: GERD Obstetrical/Gynecological: reports: denies history Genitourinary: reports: denies history Musculoskeletal: reports: chronic pain, neck/back injury Neurological: Psychiatric: reports: bipolar, depression Endocrine/Immune: reports: Diabetes Other Conditions: reports: other cancer - PRIOR SURGERIES/PROCEDURES Surgical/Procedure History: reports: appendectomy, cholecystectomy, orthopedic (extremity) (bilateral arms), back/neck, gastric bypass - IMMUNIZATION STATUS Childhood Immunizations: See Nurse Assessment Flu Vaccine: See Nurse Assessment - FAMILY HISTORY Family History: reviewed, not pertinent - SOCIAL HISTORY Smoking: cigarettes, greater than 1 pack/day Provider spent 3-5 mins advising pt. on dangers of tobacco.: Discussed manners to quit use, and f/u contacts for add'l counseling. Living Situation: family Physical Exam-General - PHYSICAL EXAM-ADULT Initial Vital Signs Reviewed: Yes - CONSTITUTIONAL General Appearance: alert, no apparent distress, obese - EYES Eyes: PERRL/EOMI - HEAD, EARS, NOSE, MOUTH & THROAT HENMT: normocephalic/atraumatic, moist mucous membranes, normal ENT inspection - NECK Neck: non-tender, full range of motion, supple, normal inspection - RESPIRATORY Respiratory: chest non-tender, lungs clear, normal breath sounds, no respiratory distress, no accessory muscle use - CARDIOVASCULAR Cardiovascular: normal peripheral pulses, regular rate, rhythm - GASTROINTESTINAL (ABDOMEN) Abdominal Exam: normal bowel sounds, non tender, soft - LYMPHATIC Lymphatic: no adenopathy - MUSCULOSKELETAL Back Exam: no CVA tenderness, vertebral tenderness (thoracic tenderness) Extremity: normal range of motion, normal inspection, pedal edema (bilateral pedal edema), swelling (bilateral lowers legs), tenderness (bilateral lower legs) - SKIN Integumentary: erythema ( erythema bilateral distal lower legs) - NEUROLOGIC Neurologic: grossly normal - PSYCHIATRIC Psych/Mental Status: normal mood/affect Progress - PLAN OF CARE/RESULTS Progress/Plan/Lab Results: Vital Signs - 8 hr 03/26/19 20:18 Temperature 98.2 F Pulse Rate 83 Respiratory Rate 20 Blood Pressure 121/82 O2 Sat by Pulse Oximetry 99 Orders Category Date Time Status cxr [CHEST-2 VIEWS] [RAD] Stat Exams 03/26/19 20:51 Taken CBC WITH ELECTRONIC DIFF [HEME] Stat Lab 03/26/19 20:51 Uncollected COMPREHENSIVE METABOLIC PANEL [CHEM] Stat Lab 03/26/19 20:51 Uncollected Result Diagrams: 03/26/19 20:20 03/26/19 20:20 Departure - Departure Date of Disposition Decision: 03/27/19 Time of Disposition Decision: 01:20 DIAGNOSIS: Compression fracture of T8 vertebra Qualifiers: Encounter type: initial encounter Qualified Code(s): S22.060A - Wedge compression fracture of T7-T8 vertebra, initial encounter for closed fracture Compression fracture of T9 vertebra Qualifiers: Encounter type: initial encounter Qualified Code(s): S22.070A - Wedge compression fracture of T9-T10 vertebra, initial encounter for closed fracture Compression fracture of T10 vertebra Qualifiers: Encounter type: initial encounter Qualified Code(s): S22.070A - Wedge compression fracture of T9-T10 vertebra, initial encounter for closed fracture Compression fracture of T7 vertebra Qualifiers: Encounter type: initial encounter Qualified Code(s): S22.060A - Wedge compression fracture of T7-T8 vertebra, initial encounter for closed fracture Disposition: HOME 01 Certified Medical Emergency: Emergent Condition: Stable Additional Freetext Instructions: Followup with [facility] in [place] ([phone]) We have examined and treated you today on an emergency basis only. This was not a substitute for, or an effort to provide, complete medical care. In most cases, you must let your doctor check you again. Tell your doctor about any new or lasting problems. We cannot recognize and treat all injuries or illnesses in one Emergency Department visit. If you had special tests, such as X-rays or CT scans, will be reviewed by radiologist and will call you if there are any new jones ggestions Follow up with primary care provider in 1 to 2 days if no improvement. If you do not have a primary care provider, you need to choose one as soon as possible. Take medicines as prescribed. Monitor for any side effects or adverse events from medications. If any side effect, adverse event or rash develops, or if you suspect any other adverse reaction to the medication, then discontinue the medication immediately and contact clinic /PCP or go to the nearest ER. Narcotic meds / sedative meds instruction - patent advised not to drive, operate any machinery or go into water after taking meds as it may impair mental ability to react to the situation in an appropriate manner. Continue other current medicines. Follow up with PCP within 24-48 hours, or sooner if symptoms worsen or fail to improve. Patient / guardian verbalizes understanding of treatment plan, medication, and side effects and agrees with treatment plan. Patient leaves ER in stable condition and ambulatory state. Return to ER as needed. Discharge instructions reviewed verbally and given to patient in written form. Follow up with spine center without fail, no bending or lifting. No bending or lifting ED Follow Up Instructions: You have been treated by a care provider in the Emergency Department. These instructions are being provided to you so you can have an understanding of how to care for yourself upon discharge. Upon discharge from the Emergency Department, you are responsible for making arrangements for follow-up care by a physician of your choice. Take all prescribed medications as directed. Return to the Emergency Department immediately for any new or worsening symptoms. You may call the Physician Referral phone number at [phone] to obtain a list of Physicians who are taking new patients. Prescriptions: Hydrocodone/APAP 5 mg/325 mg [Bronx-5] 1 tab PO Q6H PRN PRN #12 tab PRN Reason: Pain Referrals and Follow-Ups: Nicola Smyth MD [Primary Care Provider] - Work Excuses: Return to School/Parent Work Discharge Education: Spinal Compression Fracture - Critical Care Note This patient required my direct & personal management of CC.: No Attestation - Physician/ GINI Attestation Patient care was provided by Advanced Practice Provider:: No The physician spent face to face time with patient:: Yes Advanced Practice Provider documentation review:: Supervising physician onsite and consulted in the evaluation and care of this patient. The physician did have a face to face encounter with the patient. This chart was documented by the indicated scribe, (Kim Rodriguez Scribe) and accurately reflects the services I performed and decisions made by me, Donnie Sorenson MD, as attested by the provider's signature.
[2019-03-27] MEDS ORDERED: MORPHINE IM ONE (00:24)
[2019-03-27] MEDS ORDERED: ZOFRAN IM ONE (00:24)
[2019-03-27] MEDS ORDERED: ZOFRAN IV PRN (02:52)
[2019-03-27] MEDS ORDERED: NS 1,000 ML IV ONE (02:52)
--- NOTE | 2019-03-27 04:59 | Diag Imaging Result Doc PS360 ---
EXAM : CT THORACIC SPINE W/O CONTRAST HISTORY: BACK PAIN TECHNIQUE: Emergency CT of the thoracic spine without contrast COMPARISON: Chest x-ray from 03/09/2019 FINDINGS: There are 50% compression fractures to the T7, T8, and T9 vertebra. Approximately 30% compression fracture to the T10 vertebra. These were present on the prior plain film. No new compression fracture. No subluxation. Exaggerated kyphosis. No pleural effusions. No pneumothoraces. IMPRESSION: Old compression fractures unchanged from the prior chest x-ray. A preliminary report was given at 11:44 PM on 03/26/2019 This exam was performed using automated exposure control, adjustment of mA or kV according to patient size, and/or use of iterative reconstruction technique. Electronically signed by Sherman Casiano 03/27/2019 4:57 AM
--- NOTE | 2019-03-27 05:12 | Diag Imaging Result Doc PS360 ---
EXAM: CT ABD/PELVIS W/IV CONT ONLY HISTORY: abdominal pain TECHNIQUE: CT abdomen and pelvis with intravenous contrast COMPARISON: None. FINDINGS: There is a small hiatal hernia. There has been a gastric bypass procedure and the gallbladder has been removed. Mild fatty infiltration of the liver. Normal spleen, pancreas, adrenal glands, and kidneys. No hydronephrosis. Prominent atherosclerosis. No aortic aneurysm. Prominent stool throughout the colon. The cecum is in the anterior mid abdomen measuring 7.0 cm in maximum diameter. There are scattered distal colonic diverticula. The uterus is small. Neither ovary is enlarged. The urinary bladder is distended and appears normal. No abscess. No ascites. The lumbar spine would be discussed under separate report. IMPRESSION: 1.Gastric bypass and cholecystectomy 2.Small hiatal hernia 3.Mild fatty infiltration of the liver 4.Constipation with a distended cecum 5.Prominent atherosclerosis 6.A preliminary report was given at 1:36 AM This exam was performed using automated exposure control, adjustment of mA or kV according to patient size, and/or use of iterative reconstruction technique. Electronically signed by Sherman Casiano 03/27/2019 5:09 AM
--- NOTE | 2019-03-27 05:13 | Diag Imaging Result Doc PS360 ---
EXAM: CHEST-2 VIEWS HISTORY: BACK PAIN RECENT PNA TECHNIQUE: Chest two views COMPARISON: 03/09/2019 FINDINGS: The lungs are well expanded. The heart is not enlarged. The vessels are not distended. There are mild increased interstitial markings in the left base. No consolidation. No pleural effusions. There has been surgery to the right clavicle. The left hemidiaphragm is elevated. IMPRESSION: Left basilar atelectasis. Electronically signed by Sherman Casiano 03/27/2019 5:11 AM
--- NOTE | 2019-03-27 05:23 | Diag Imaging Result Doc PS360 ---
EXAM : CT LUMBAR SPINE W/O CONTRAST HISTORY: BACK PAIN TECHNIQUE: Emergency CT of the lumbar spine without contrast. COMPARISON: None. No plain films obtained. FINDINGS: Lumbar spine: There is good alignment to the lumbar spine. No compressed vertebra. No other fracture. No subluxation. Mild degenerative changes in the lower lumbar spine. No significant neural foraminal narrowing. No disc herniation. IMPRESSION: No acute fracture. A preliminary report was given at 11:39 PM on 03/26/2019 This exam was performed using automated exposure control, adjustment of mA or kV according to patient size, and/or use of iterative reconstruction technique. Electronically signed by Sherman Casiano 03/27/2019 5:21 AM
[2019-03-27] MEDS ORDERED: FLEET MINERAL OIL ENEMA PR ONE (07:41)
--- NOTE | 2019-03-27 08:06 | Diag Imaging Result Doc PS360 ---
EXAM: KUB ABDOMEN HISTORY: abdominal pain TECHNIQUE: Abdomen two views COMPARISON: None. FINDINGS: There is a large amount of stool throughout the colon. Multiple surgical clips are in the upper abdomen and in the pelvis. No organomegaly. Prominent atherosclerosis. IMPRESSION: Marked constipation. Electronically signed by Sherman Casiano 03/27/2019 8:04 AM
--- NOTE | 2019-03-27 08:21 | GENERAL SURGERY CONSULTATION ---
DATE: 03/27/2019 REASON FOR CONSULTATION: Abdominal pain and distended cecum. HISTORY OF PRESENT ILLNESS: This is a 58-year-old female who presented to the emergency room yesterday for persistent severe low back pain across her lower back that has been present for 3 weeks and unrelenting, and she could not take the pain anymore. She has tried Tylenol, ibuprofen and Neurontin for this pain but has not had any relief. She was admitted at [facility] for about 1 night but signed herself out because she was frustrated with, I guess, the lack of communication and perhaps no one being able to help her with her pain. She also admits to some mild upper abdominal pain for the last 2 days that hurts when she coughs, but is not too bad if she is lying still. She also reports chronic constipation. She takes stool softeners regularly. She says she goes 3 or 4 times per week, but cannot recall when her last bowel movement was and it was probably at least 2 days ago. She did vomit yesterday, but is not nauseated today. No fever or chills, or other systemic complaints. PAST MEDICAL HISTORY: Low back pain, constipation, hypertension, diabetes mellitus. PAST SURGICAL HISTORY: Right shoulder surgery, C-spine surgery, laparoscopic Karena-en-Y gastric bypass, laparoscopic cholecystectomy. ALLERGIES: No known drug allergies. HOME MEDICATIONS: Simvastatin, Zanaflex, Neurontin, Colace, metformin, Lasix, Effexor, Vasotec, Trileptal, calcium carbonate, omeprazole, Zoloft, Desyrel, aspirin, oxybutynin, Tylenol. SOCIAL HISTORY: She smokes 1 pack per day. She denies alcohol or illicit drug use. FAMILY HISTORY: Positive for diabetes. Otherwise unremarkable. REVIEW OF SYSTEMS: Ten systems reviewed and negative except as noted above. PHYSICAL EXAMINATION: Vital Signs: Temperature 97.7 degrees, pulse 73, respirations 16, blood pressure 110/61, O2 saturation 100%. General: She is elderly and appears chronically ill but in no acute distress. HEENT: Normocephalic, atraumatic. Extraocular muscles intact. Pupils equal, round, reactive to light. Sclerae anicteric. Moist mucous membranes. Neck: Supple. No thyromegaly. Cardiovascular: Regular rate and rhythm. Respiratory: Bilateral breath sounds. No work of breathing. Gastrointestinal: Soft, obese, minimally tender in the upper abdomen. No rebound or guarding. No organomegaly or mass. No hernias appreciated. Extremities: No clubbing, cyanosis, or edema. Skin: Warm and dry. No rash. Musculoskeletal: Moves all extremities equally and well. LABORATORY DATA: CBC and complete metabolic profile reviewed and notable for sodium of 130, chloride 95, alkaline phosphatase 116, lipase 8. IMAGING: CT of abdomen and pelvis was done and over the phone last night, was described to me by the preliminary radiology report as a possible cecal volvulus. It was read this morning here as having constipation with a distended cecum. On my own review, I actually think the colon in the anterior abdomen is a redundant loop of sigmoid colon. In any case, her colon appears to be quite constipated. There does not appear to be any volvulus or other intra-abdominal acute pathology. She does have chronic calcified vessels. ASSESSMENT AND PLAN: A 58-year-old female with low back pain and constipation. I do not think she has an acute surgical abdomen. We will order a clear liquid diet and observe her for now. I will also order MiraLAX and an enema. cc: Cem Reyna MD
[2019-03-27 08:29] LABS: BASO# 0.01 X1000 (0.0-0.2); BASO% 0.2 % (0.0-0.8); EOS# 0.08 X1000 (0.0-0.7); EOS% 1.6 % (0.0-10.0); HEMATOCRIT 37.4 % (37.0-47.0); HEMOGLOBIN 12.6 g/dL (12.0-16.0); IMM GRAN# 0.02 X1000 (0.0-0.04); IMM GRAN% 0.4 % (0.0-0.5); LYMPH# 0.46 X1000 (1.2-3.4); MCH 30.3 PG (27-31); MCHC 33.7 g/dL (33-37); MCV 89.9 FL (81-99); MONO# 0.63 X1000 (0.11-0.59); MONO% 12.3 % (1.7-9.3); MPV 9.2 FL (7.4-10.4); NEUT# 3.91 X1000 (1.4-6.5); NEUT% 76.5 % (42.2-75.2); PLT 237 X1000 (130-400); RBC 4.16 XMIL (4.2-5.4); RDW 15.1 % (11.5-14.5); WBC 5.11 X1000 (4.8-10.8)
[2019-03-27] MEDS ORDERED: TYLENOL PO PRN (08:45)
[2019-03-27] MEDS ORDERED: GLUCOPHAGE PO SCH (09:00)
[2019-03-27] MEDS: MORPHINE IV PRN ×3 (09:07→22:02)
[2019-03-27] MEDS: MIRALAX PO SCH ×2 (09:18→21:47)
[2019-03-27] MEDS: COLACE PO SCH ×2 (09:18→21:47)
[2019-03-27] MEDS: CALTRATE 600 PO SCH (10:20)
[2019-03-27] MEDS: TRILEPTAL PO SCH ×2 (10:21→21:47)
[2019-03-27] MEDS: SOLU-MEDROL IV SCH ×2 (10:21→17:16)
[2019-03-27] MEDS: LASIX PO SCH ×2 (10:22→21:47)
[2019-03-27] MEDS: DITROPAN XL PO SCH (10:22)
[2019-03-27] MEDS: VASOTEC PO SCH (10:22)
[2019-03-27] MEDS: ZOLOFT PO SCH (10:22)
[2019-03-27] MEDS: ASPIRIN PO SCH (10:22)
[2019-03-27] MEDS: ZANAFLEX PO SCH ×2 (10:23→21:47)
[2019-03-27] MEDS: EFFEXOR XR PO SCH (13:26)
[2019-03-27] MEDS: NEURONTIN PO SCH ×2 (14:15→21:47)
--- NOTE | 2019-03-27 17:46 | HISTORY AND PHYSICAL ---
CHIEF COMPLAINT: Abdominal pain. HISTORY OF PRESENT ILLNESS: This is a 58-year-old female who presented to the emergency room complaining of bilateral lower back pain that she states has been persistent for 3 weeks despite taking Tylenol, ibuprofen, and Neurontin. She was admitted [facility]. She does state that she has had upper abdominal pain for the last 2 days that is present when she coughs. She does report chronic constipation with normal bowel movements about 3 times a week. She thinks it has been 2 or 3 days since her last bowel movement. She denies any nausea, any black or bloody vomitus or stools. She did state that she had 1 episode of vomiting yesterday. PAST MEDICAL HISTORY: Low back pain, hypertension, diabetes mellitus. PAST SURGICAL HISTORY: C-spine, Karena-en-Y gastric bypass, laparoscopic cholecystectomy, and right shoulder surgery. ALLERGIES: No known drug allergies. HOME MEDICATIONS: A list will be obtained by the nursing staff and once verified we will review and restart as appropriate. REVIEW OF SYSTEMS: Review of systems is discussed with patient with pertinent positives stated in HPI. She denied any syncope or dizziness, any chest pain, palpitations, cough, fever, chills, any night sweats, black or bloody vomitus or stools, any hematuria, dysuria, frequency, urgency. PHYSICAL EXAMINATION: GENERAL: This is a 58-year-old female who is sitting up in the bed in no distress. VITAL SIGNS: Blood pressure is 118/662 with a heart rate of 80, respirations 16, temperature 98.7 degrees with O2 saturations of 96%. EYES: Pupils equal, round, react to light. EOMs are intact. Sclerae are anicteric. HEENT: Head is normocephalic, atraumatic. Mucous membranes are moist. NECK: Supple. Trachea midline. CARDIOVASCULAR: Regular rate and rhythm. S1 and S2 appreciated. EXTREMITIES: She has no lower extremity edema. Calves are nontender to palpation bilaterally with peripheral pulses palpable x4 extremities. PULMONARY: Breath sounds are clear with no increased work of breathing noted. Chest rises and falls symmetric with respiration. Chest wall is nontender to palpation gastrointestinal. ABDOMEN: Soft. Nondistended. It is large. She has upper abdominal tenderness. Bowel sounds in all 4 quadrants. SKIN: Warm and dry. NEUROLOGIC: She is alert and oriented. DIAGNOSTIC STUDIES: WBC is 6 with hemoglobin 12.5, hematocrit 36.4, platelets of 249,000. Sodium 130, potassium 3.9, BUN 9, creatinine 0.5 with a glucose of 102. Lipase is 8. 1. Chest x-ray revealed left basilar atelectasis. 2. L-spine CT revealed no acute fracture. 3. Thoracic C-spine revealed 50% compression fractures to the T7, T8, and T9 vertebra. Approximately 30% compression fracture to the T10 vertebra. No subluxation. Exaggerated kyphosis. No pleural effusions. No pneumothoraces. 4. CT of the abdomen and pelvis revealed gastric bypass and cholecystectomy. Small hiatal hernia. Mild fatty infiltration of the liver. Constipation with a distended cecum. Prominent atherosclerosis per Radiology read. ASSESSMENT AND PLAN: 1. Constipation. 2. Chronic low back pain. 3. T7, T8, T9, and T10 compression fractures . 4. Hypertension. 5. Diabetes mellitus, type 1. PLAN: The patient has been admitted to the medical/surgical floor. She will be n.p.o. at present. General Surgery has been consulted. We will awaiting their evaluation and expertise. We will identify her home medications and continue as appropriate. She will be placed on patterned blood glucose with sliding scale insulin. Tobacco use and abuse with nicotine patch. For DVT prophylaxis, we will use SCDs and GI prophylaxis Prilosec. Further treatments pending hospital course. Dictated by ALMITA Glez for Evaristo Bonilla MD cc: ALMITA Glez MD
[2019-03-27] MEDS ORDERED: COLACE PO SCH (21:00)
[2019-03-27] MEDS ORDERED: ZOCOR PO SCH (21:00)
[2019-03-27] MEDS ORDERED: DESYREL PO SCH (21:00)
[2019-03-27] MEDS: HUMALOG (PARKWAY) SUBQ SCH (22:39)
[2019-03-28] MEDS: SOLU-MEDROL IV SCH ×2 (00:48→09:19)
[2019-03-28] MEDS: MORPHINE IV PRN ×2 (03:36→09:18)
--- NOTE | 2019-03-28 04:21 | HISTORY AND PHYSICAL ---
ADDENDUM: Patient seen and examined by myself. Full note dictated and discussed with nurse practitioner. Patient is noted to have several compression fractures, therefore, she will be placed on Solu- Medrol to see if this will help. We will follow her hyponatremia. Will attempt enemas for her constipation. Further orders as needed. cc: Evaristo Bonilla MD
[2019-03-28] MEDS: NEURONTIN PO SCH ×2 (06:03→13:20)
[2019-03-28] MEDS: HUMALOG (PARKWAY) SUBQ SCH (06:51)
[2019-03-28] MEDS ORDERED: PRILOSEC PO SCH (07:00)
[2019-03-28 07:08] LABS: AGAP 9; ALBUMIN 3.4 g/dL (3.5-5.0); ALKALINE PHOSPHATASE 110 U/L (32-104); BUN 4 mg/dL (8-22); CALCIUM 8.7 mg/dL (8.8-10.2); CHLORIDE 105 mmol/L (98-107); COSMO 276; CREATININE 0.4 mg/dL (0.5-0.9); ESTIMATED GFR > 60; GLUCOSE 135 mg/dL (70-104); GOT 11 U/L (10-30); GPT 9 U/L (10-36); MAGNESIUM 1.6 mg/dL (1.5-2.7); POTASSIUM 3.8 mmol/L (3.5-5.1); SODIUM 139 mmol/L (136-145); TCO2 26 mmol/L (25-35)
[2019-03-28 07:30] LABS: HEMATOCRIT 37.5 % (37.0-47.0); HEMOGLOBIN 12.4 g/dL (12.0-16.0); MCH 29.9 PG (27-31); MCHC 33.1 g/dL (33-37); MCV 90.4 FL (81-99); MPV 10.1 FL (7.4-10.4); RBC 4.15 XMIL (4.2-5.4); RDW 14.8 % (11.5-14.5); WBC 4.54 X1000 (4.8-10.8)
[2019-03-28] MEDS ORDERED: GLUCOPHAGE PO SCH (08:00)
[2019-03-28] MEDS ORDERED: GOLYTELY PO ONE (08:33)
[2019-03-28] MEDS: MIRALAX PO SCH (09:19)
[2019-03-28] MEDS: CALTRATE 600 PO SCH (09:19)
[2019-03-28] MEDS: LASIX PO SCH (09:19)
[2019-03-28] MEDS: ZOLOFT PO SCH (09:19)
[2019-03-28] MEDS: ASPIRIN PO SCH (09:20)
[2019-03-28] MEDS: DITROPAN XL PO SCH (09:20)
[2019-03-28] MEDS: VASOTEC PO SCH (09:20)
[2019-03-28] MEDS: EFFEXOR XR PO SCH (09:20)
[2019-03-28] MEDS: TRILEPTAL PO SCH (09:21)
[2019-03-28] MEDS: COLACE PO SCH (09:21)
[2019-03-28] MEDS: ZANAFLEX PO SCH (09:21)
[2019-03-28 11:31] VITALS: BP 133/79
--- NOTE | 2019-03-29 03:49 | DISCHARGE SUMMARY ---
ADMISSION DATE: 03/27/2019 DISCHARGE DATE: 03/28/2019 DIAGNOSES: 1. Constipation. 2. Chronic back pain. 3. T7, T8, T9 and T10 compression fractures. 4. Hypertension. 5. Diabetes mellitus type 1. DIAGNOSTICS: 1. Chest x-ray revealed left basilar atelectasis. 2. Lumbar CT revealed no acute fracture. No compressed vertebra. 3. Thoracic spine CT revealed 50% compression fractures to T7, T8 and T9 with approximately 30% compression fracture to T10 vertebra. Exaggerated kyphosis. No subluxation. No new compression fracture. No pleural effusions. 4. CT of the abdomen and pelvis revealed gastric bypass and cholecystectomy, small hiatal hernia, mild fatty liver, constipation with a distended cecum, prominent atherosclerosis. 5. Abdominal x-ray revealed marked constipation. CONSULTANTS: Dr. Cem Reyna in General Surgery. HOSPITAL COURSE: Ms. Leo presented to the emergency room complaining of abdominal pain, low back pain. She was found to be constipated for which she received enema. She did have a bowel movement with repeat x-ray revealing a large amount of stool throughout the colon. The patient was very adamant that she did not want enemas. Therefore, she was given a liter of GoLYTELY to drink. She drank about 3/4 of a gallon. At about 1:15, the patient decided she wanted to go home. The nursing staff did talk to the patient and tell her that she needed to stay until she started having bowel movements to assure that everything was okay. The patient informed the staff, "I can poop at home. I don't need to poop here." She signed out AMA before myself or Dr. Bonilla could discuss treatment plan with her. She reportedly left ambulatory with a family member. The patient had a CT of the pelvis with the preliminary report read out as a possible cecal volvulus. Dr. Reyna in General Surgery reviewed her scan and felt that she had a redundant loop of sigmoid colon, not a cecal volvulus, and he recommended that she have clear liquids and bowel regimen be started. DISCHARGE VITAL SIGNS: Blood pressure is 133/79 with a heart rate of 90, respirations 20, temperature was 98.2 degrees with room air saturations 95%. DISCHARGE MEDICATION: The patient was instructed by the nursing staff to continue her home medications. FOLLOWUP: 1. She was instructed to follow up with her primary care physician, Dr. Smyth, to call them in the morning and set up an appointment. 2. [facility] [place]. She was given the number to call per the further emergency room physician to set up an appointment regarding her chronic thoracic compression fractures. 3. The patient left against medical advice ambulatory with her sister. IV was removed prior to discharge. Dictated by ALMITA Glez for Evaristo Bonilla MD cc: ALMITA Glez MD
--- NOTE | 2019-03-29 05:53 | DISCHARGE SUMMARY ---
ADMISSION DATE: 03/27/2019 DISCHARGE DATE: 03/28/2019 DISCHARGE DIAGNOSES: 1. Patient left against medical advice and refused treatment. 2. Constipation. Patient's x-ray shows significant constipation although patient declined to believe that this was correct. 3. T7, T8, T9, and T10 compression fractures. We had placed patient on steroid to improve her symptoms. The steroid did appear to be working and had certainly planned on discharging her home on steroids for few days. 4. Diabetes. 5. Hypertension. 6. Chronic low back pain. 7. Small hiatal hernia. 8. Mild fatty infiltrate of the liver. CONSULTATIONS: None. PROCEDURES: None. BRIEF HOSPITAL COURSE: Patient is a 58-year-old female who presented to the hospital with back pain persistent for the past 3 weeks. She was admitted to the hospital. X-ray demonstrates constipation with distended colon. We attempted an enema with no results. Attempted GoLYTELY. The patient began drinking it and then decided that she was no longer going to stay in the hospital and immediately left AMA. DISPOSITION: No discharge disposition was able to be performed as patient left AMA. cc: Evaristo Bonilla MD
== END 2019-03-28 13:19 | disposition left against medical advice (07) | DRG 392 ==
LOC: P.MEDSURG 20:07 → P.ED 20:07 → OBSVTOIN 03-27 03:03
PROVIDERS: ATTEND Family Medicine
CPT/HCPCS: 71020; 71046; 72128; 72131; 74000; 74018; 74177; 80053; 82948; 83690; 83735; 84443; 85025; 85027; A9270; J2270; J2405; J2930; J7030; Q9967; XXXXX